=== PATIENT | female | born 1955 | race Caucasian/White ===

== ENCOUNTER 2018-07-25 07:07 | Observation (INO) | payer BC, OTHER ==
--- NOTE | 2018-07-23 17:55 | PREOPHP ---
DATE OF ADMISSION: 07/25/2018 Scheduled for surgery 07/25/2018. HISTORY OF PRESENT ILLNESS: The patient is a 62-year-old Farsi speaking patient in stable health wit h infiltrating ductal carcinoma of the left breast and ductal carcinoma in situ of the left breast. The patient presented with imaging studies showing 2 lesions in the left breast at 1 o'clock, approxi mately 7 to 8 cm from the nipple, is a 1 cm nodule and core biopsy revealed infiltrating ductal carci noma. At 12 o'clock central to slightly upper outer quadrant was an area of abnormal calcifications and core biopsy revealed ductal carcinoma in situ. The distance between the 2 biopsy sites is 7 cm. The patient underwent MRI imaging which revealed only the known infiltrating ductal carcinoma of the left breast at 1 o'clock 7 cm from the nipple, a 10 mm nodule. There were no other findings and no correlate to the 12 o'clock subcentral ductal carcinoma in situ. The right breast was negative. The carcinoma is estrogen and progesterone receptor positive and HER-2 negative. She is scheduled to un dergo left breast partial mastectomy with preoperative needle localization x2 and left axillary senti abdullahi lymph node biopsy. PAST MEDICAL HISTORY: MEDICATIONS: 1. Atenolol. 2. Amlodipine. 3. Simvastatin. 4. Levothyroxine. 5. Aspirin 81 mg. ALLERGIES: NONE. PAST SURGICAL HISTORY: Thyroidectomy in 2001. OBSTETRIC AND GYNECOLOGIC HISTORY: She is 1, para 2, menopausal for many years. PHYSICAL EXAMINATION: VITAL SIGNS: The patient is 5 feet and 5 inches, 184 pounds with stable vital signs. HEENT: Slight proptosis. LUNGS: Clear. HEART: Regular rate, rhythm. BREASTS: Moderate in size and ptotic. There is no palpable mass in either breast. There is no axil sally or supraclavicular lymphadenopathy. ABDOMEN: Soft. PELVIC AND RECTAL: Per primary care. EXTREMITIES: Without edema. NEUROLOGIC: Physiologic. IMPRESSION: 1. Infiltrating ductal carcinoma, left breast. 2. Ductal carcinoma in situ, left breast (2 separate foci). PLAN: I had a full discussion with the patient regarding the nature of her condition and the nature of the surgery, indications, alternatives, options and risks including bleeding, infection, injury to adjacent structures, need for additional surgery or treatments including radiation and chemotherapy and hormonal blockade based on final pathology, scarring and distortion of the breast and her nipple, et cetera. All questions have been answered. The patient understands and agrees to proceed. Dictated By: VIVIEN QUISPE/MANDEEP Conf#: [id number] DID#: [id number]
[~2018-07-25] VITALS: Ht 160 cm; Wt 84.1 kg
[2018-07-25] VITALS (21 sets, daily range): BP systolic 122–166; BP diastolic 61–80; PULSE 54–74; RESP 11–17; Ht 160 cm; Wt 84.1 kg
[~2018-07-25 07:07] MED LIST: CEFAZOLIN 2 GM/50 ML (PMX) 50 ML IVPB SCH; SOD CHLORIDE 0.9% 1,000 ML IV SCH
--- NOTE | 2018-07-25 08:23 | HPN ---
Date/Time of Note Date/Time of Note DATE: 07/25/18 TIME: 08:23 Interval H&P Admission Note Pt. seen H&P reviewed: No system changes VIVIEN JOHANSEN Jul 25, 2018 08:23
[2018-07-25] MEDS ORDERED: CEFAZOLIN 2 GM/50 ML (PMX) 50 ML IVPB ONE (10:00)
[2018-07-25] MEDS ORDERED: SOD CHLORIDE 0.9% 1,000 ML IV SCH (10:00)
[2018-07-25] MEDS ORDERED: ISOSULFAN BLUE 1% 5 ML INJ SC ONE (12:33)
--- NOTE | 2018-07-25 12:43 | PREAC ---
Date/Time of Note Date/Time of Note DATE: 07/25/18 TIME: 12:41 Anesthesia Eval and Record Evaluation Time Pre-Procedure Interview DATE: 07/25/18 TIME: 12:41 Age 62 Sex female NPO: 8 hrs Preoperative diagnosis Lt Breast CA Planned procedure Lt breast partial mastectomy Past Medical History Past Medical History: Includes Cardio: HTN, Dyslipidemia Endo: Hypothyroid GI: Morbid obesity Surgery & Anesthesia Issues No known issue Meds Anticoagulation: No Beta Yury within 24 hr: No Reason Beta Yury not given: Pt. not on B-Yury Current Medications Sodium Chloride 1,000 ml @ 75 mls/hr [id number] IV ; Start 07/25/18 at 10:00; Stop 07/25/18 at 23:19 Meds reviewed: Yes Allergies Coded Allergies: No Known Allergy (Unverified , 07/15/18) Allergies Reviewed: Yes Labs/Studies Labs Reviewed: Reviewed by anesthesiologist test: N/A Studies: ECG Pre-procedure Exam Last vitals Vital Signs Date Temp Pulse Resp B/P (MAP) Pulse Ox O2 O2 Flow FiO2 Time Delivery Rate 07/25/18 98.3 54 16 163/80 97 Room Air 11:02 (107) Airway: Adequate mouth opening, Adequate thyromental dist Mallampati: Mallampati II Teeth: Normal Lung: Normal Heart: Normal ASA Physical Status ASA physical status: 3 Emergency: None Planned Anesthetic General/MAC: LMA Planned Pain Management Local by surgeon Pre-operative Attestations Prior to commencing anesthesia and surgery, the patient was re-evaluated, there was verification of: *The patient's identity *The results of appropriate recent lab work and preoperative vital signs *The above evaluation not changing prior to induction *Anesthetic plan, risk benefits, alternative and complications discussed with patient/family; questions answered; patient/family understands, accepts and wishes to proceed. JASMINA BURKETT MD Jul 25, 2018 12:43
[2018-07-25] MEDS ORDERED: MIDAZOLAM 1 MG/ML 2 ML INJ ONE (12:47)
[2018-07-25] MEDS ORDERED: PROPOFOL 20 ML ONE (14:21)
[2018-07-25] MEDS ORDERED: LIDOCAINE 2% (SDV) 5 ML INJ ONE (14:21)
[2018-07-25] MEDS ORDERED: CEFAZOLIN 1 GM INJ ONE (14:21)
[2018-07-25] MEDS ORDERED: ONDANSETRON 4 MG INJ ONE (14:23)
[2018-07-25] MEDS ORDERED: HYDROmorphONE 1 MG/ML SYG SC PRN (14:30)
[2018-07-25] MEDS ORDERED: ACETAMINOPHEN 325 MG TAB PO PRN (14:30)
[2018-07-25] MEDS ORDERED: DIPHENHYDRAMINE 25 MG CAP PO PRN (14:30)
[2018-07-25] MEDS ORDERED: ONDANSETRON 4 MG INJ IV PRN ×2 (14:30→15:00)
[2018-07-25] MEDS ORDERED: HYDROCODONE/APAP (5/325) TAB PO PRN (14:30)
--- NOTE | 2018-07-25 14:39 | PAC ---
Date/Time of Note Date/Time of Note DATE: 07/25/18 TIME: 14:38 Post-Anesthesia Notes Post-Anesthesia Note Last documented vital signs Vital Signs Date Temp Pulse Resp B/P (MAP) Pulse Ox O2 O2 Flow FiO2 Time Delivery Rate 07/25/18 98.3 54 16 163/80 97 Room Air 11:02 (107) Activity: WNL Respiratory function: WNL Cardiovascular function: WNL Mental status: Baseline Pain reasonably controlled: Yes Hydration appropriate: Yes Nausea/Vomiting absent: Yes Comments BP:138/67, P:78, Spo2:100%, T:98,8 JASMINA BURKETT MD Jul 25, 2018 14:39
--- NOTE | 2018-07-25 14:39 | SIPON ---
Date/Time of Note Date/Time of Note DATE: 07/25/18 TIME: 14:36 Operative Report Preoperative Diagnosis invasive ductal carcinoma and ductal carcinoma in situ (2 lesions) left breast Postoperative Diagnosis same Operation/Procedure Performed left breast partial mastectomy with pre-op needle localization x 2 and left axillary sentinel lymph node biopsy Surgeon see signature line fiscal assistant none Anesthesia: general Estimated blood loss: minimal Transfusion Required none Specimen left breast partial mastectomy and left axillary sentinel lymph node Grafts/Implants none Complications none VIVIEN JOHANSEN Jul 25, 2018 14:39
[2018-07-25] MEDS ORDERED: DIPHENHYDRAMINE 50 MG INJ IV PRN (15:00)
[2018-07-25] MEDS ORDERED: LABETALOL HCL 20MG INJ IV PRN (15:00)
[2018-07-25] MEDS ORDERED: hydrALAzine 20 MG INJ IV PRN (15:00)
[2018-07-25] MEDS ORDERED: METOCLOPRAMIDE 10 MG INJ IV PRN (15:00)
[2018-07-25] MEDS ORDERED: FENTAnyl 50 MCG/ML VIAL IV PRN (15:00)
[2018-07-25] MEDS ORDERED: MEPERIDINE 25 MG INJ IV PRN (15:00)
[2018-07-25] MEDS ORDERED: HYDROmorphONE 1 MG/5 ML IV SYRINGE IV PRN ×2 (15:00)
--- NOTE | 2018-07-25 18:14 | OPR ---
DATE OF OPERATION: 07/25/2018 SURGEON: Vivien Willams MD PIPE WASHER SURGEON: None. ANESTHESIOLOGIST: Dr. Badillo. ANESTHESIOLOGIST: Juan Ku MD TYPE OF ANESTHESIA: General. PREOPERATIVE DIAGNOSES: Invasive ductal carcinoma and ductal carcinoma in situ, left breast, 2 separate lesions. POSTOPERATIVE DIAGNOSES: Invasive ductal carcinoma and ductal carcinoma in situ, left breast, 2 separate lesions. OPERATION PERFORMED: Left breast partial mastectomy with preoperative needle localization x2 and left axillary sentinel lymph node biopsy. DESCRIPTION OF PROCEDURE: The patient was taken to the operating room and under general anesthesia, with sequential compression device stockings in place, she was prepped and draped in the usual fashion, incorporating the left upper extremity in the operative field. The patient had 2 wire localizations. The infiltrating ductal carcinoma was in the upper outer quadrant of the breast at 1 o'clock 7 cm from the nipple. The ductal carcinoma in situ was closer to the nipple areolar complex in the central to slightly upper outer quadrant at 12 o'clock. Before prepping the patient, I injected 3 mL of 1% isosulfan blue Lymphazurin at 2 o'clock at the areolar border. I then made a left axillary incision achieving hemostasis with cautery and incising the clavipectoral fascia. The blue node was identified as was another obvious node and these were resected using the LigaSure electrosurgical device. The specimen was given for pathology. The field was irrigated and hemostasis was seen to be secure. Through a separate stab incision inferolateral a 19 mm round Jim drain was placed into the axilla and sutured to the skin with 2-0 nylon suture. The clavipectoral fascia was closed with interrupted 3-0 Vicryl, then the subcutaneous tissues were closed with interrupted 3-0 Vicryl and the skin was closed with continuous 4-0 Monocryl subcuticular suture. Attention was then directed to the left breast. A curvilinear upper outer quadrant incision was made achieving hemostasis with cautery. Flaps were widely dissected circumferentially. Both wires were brought into the field. The breast cancer was completely resected incorporating the entire wire down to the chest wall and, in continuity, I was able to resect the other wire localization area, all done with cautery. Specimen was oriented with suture markers anterior medial and superior and the specimen was given for specimen radiography and then pathology. The incision was irrigated with sterile water and hemostasis secured with cautery. The incision was closed with interrupted 3-0 Vicryl deep dermal subcutaneous sutures followed by continuous 4-0 Monocryl subcuticular suture. Mastisol and 1/2-inch Steri-Strips were applied to both incisions followed by dry sterile dressing. Final sponge and needle counts were correct. The patient tolerated the procedure well and left the operating room in good condition. Dictated By: VIVIEN QUISPE/MANDEEP Conf#: [id number] DID#: [id number] MTDD
[2018-07-25] MEDS: D5W-0.45 NACL + KCL 20 MEQ 1,000 ML IV SCH (20:04)
[2018-07-26] MEDS: D5W-0.45 NACL + KCL 20 MEQ 1,000 ML IV SCH ×2 (00:07→06:45)
[2018-07-26 01:40] VITALS: BP 141/71; PULSE 57; RESP 16
[2018-07-26 07:47] VITALS: BP 142/71; PULSE 60; RESP 18
--- NOTE | 2018-07-26 09:31 | PN ---
Date/Time of Note Date/Time of Note DATE: 07/26/18 TIME: 09:30 Assessment/Plan Lines/Catheters IV Catheter Type (from Nrsg): Peripheral IV Subjective 24 Hr Interval Summary Additional Comments AVSS Required dilaudid last evening but nothing overnight. Ambulated and tolerated po intake left breast and axilla incisions clean and dry with intact steristrips. Drain - scant serous in tubing Imp: Stable Plan: discharge with supplies/instructions/limitations provided/discussed Rx [place] 5/325 #24 f/u office 08/01 Exam/Review of Systems Vital Signs Vitals Vital Signs Date Temp Pulse Resp B/P (MAP) Pulse Ox O2 O2 Flow FiO2 Time Delivery Rate 07/26/18 98.5 60 18 142/71 94 07:47 (94) 07/25/18 Room Air 17:08 07/25/18 3.0 16:04 Intake and Output 07/25/18 07/25/18 07/26/18 1515:00 23:00 07:00 IntakeIntake Total 800 ml 1000 ml OutputOutput Total 10 ml 0 ml BalanceBalance 790 ml 1000 ml VIVIEN JOHANSEN Jul 26, 2018 09:31
== END 2018-07-26 10:45 | disposition home or self-care (01) ==
LOC: SDS 07:07 → 2NE 18:15 → SDS 18:32
PROVIDERS: ADMIT Surgery; ATTEND Surgery
DX: D05.82 Other specified type of carcinoma in situ of left breast (principal); Z79.82 Long term (current) use of aspirin
CPT/HCPCS: 19281; 19301; 38500; 88307; 88342; J0690; J1170; J2250; J2405; J3010; J3480; Z7500; Z7512; Z7610; G0378; Q9968